=== PATIENT | female | born 1945 | race Caucasian/White ===

== ENCOUNTER → 2017-11-13 | Outpatient (CLI) | payer OTHER | LOC: RAD 01:06 | DX: Z12.31 Encounter for screening mammogram for malignant neoplasm of breast (principal) ==

== ENCOUNTER → 2018-10-21 | Outpatient (CLI) | payer OTHER | LOC: ULTRA 14:07 | DX: N88.8 Other specified noninflammatory disorders of cervix uteri (principal); D25.9 Leiomyoma of uterus, unspecified ==

== ENCOUNTER → 2018-10-28 | Outpatient (CLI) | payer OTHER | LOC: NUC 10:09 | DX: M81.0 Age-related osteoporosis without current pathological fracture (principal); Z78.0 Asymptomatic menopausal state ==

== ENCOUNTER → 2018-11-05 | Outpatient (CLI) | payer OTHER | LOC: RAD 01:12 | DX: Z12.31 Encounter for screening mammogram for malignant neoplasm of breast (principal) ==

== ENCOUNTER → 2018-11-11 | Outpatient (CLI) | payer OTHER | LOC: RAD 01:21 | DX: R92.8 Other abnormal and inconclusive findings on diagnostic imaging of breast (principal) ==

== ENCOUNTER → 2019-11-13 | Outpatient (CLI) | payer OTHER | LOC: BC 10:17 | DX: Z12.31 Encounter for screening mammogram for malignant neoplasm of breast (principal) ==

== ENCOUNTER → 2021-04-18 | Outpatient (CLI) | payer OTHER | LOC: RAD 10:56 | PROVIDERS: ATTEND Internal Medicine | DX: Z12.31 Encounter for screening mammogram for malignant neoplasm of breast (principal) ==

== ENCOUNTER → 2021-05-12 | Outpatient (CLI) | payer OTHER | LOC: NUC 05-02 08:35 | DX: M85.88 Other specified disorders of bone density and structure, other site (principal); Z78.0 Asymptomatic menopausal state ==